=== PATIENT | male | born 1985 ===

== ENCOUNTER 2021-02-21 10:41 | Emergency (ER) | payer SELFPAY ==
[2021-02-21 10:45] VITALS: BP 146/78; PULSE 91
[2021-02-21] MEDS ORDERED: Sodium Chloride 0.9% 10 ML Syringe FLUSH PRN ×2 (10:45→11:14)
[2021-02-21] MEDS ORDERED: Norflurane/HFc 245FA Medium Stream Spray 103.5 ML Can ONE (10:59)
[2021-02-21] MEDS ORDERED: cefTRIAXone 1 GM in Sodium Chloride 0.9% 100 ML IV ONE (11:13)
[2021-02-21 11:17] LABS: ANION GAP 7.1 meq/L (7-15); CHLORIDE,CL 104 mmol/L (98-107); SODIUM,NA 140 mmol/L (136-145)
[2021-02-21] MEDS ORDERED: Cephalexin 250 MG Cap PO ONE (11:45)
--- NOTE | 2021-02-21 12:37 | EDM.PDOC ---
ED HPI GENERAL MEDICAL PROBLEM - General Chief Complaint: Lower Extremity Injury/Pain Stated Complaint: Right Calf redness and swelling Time Seen by Provider: 02/21/21 10:43 Source of Information: Reports: Patient History Limitations: Reports: No Limitations - History of Present Illness INITIAL COMMENTS - FREE TEXT/NARRATIVE: Increased pain/swelling back of right calf after getting skin punctured by a thorn several days ago. No fevers/chills. No other injuries. No drainage from scab. Right Calf Pain Score (Numeric/FACES): 9 - Related Data Allergies Allergy/AdvReac Type Severity Reaction Status Date / Time No Known Allergies Allergy Verified 02/21/21 11:57 Home Meds: Home Meds cephALEXin [Keflex] 500 mg PO Q6H #28 cap 02/21/21 [Rx] traMADol HCl [Tramadol HCl] 50 mg PO Q6H PRN #15 tablet 02/21/21 [Rx] Past Medical History - Past Health History Medical/Surgical History: Denies Medical/Surgical History Social & Family History - Caffeine Use Caffeine Use: Reports: Coffee - Recreational Drug Use Recreational Drug Use: No Review of Systems - Review of Systems Review Of Systems: See Below Constitutional: Reports: No Symptoms Eyes: Reports: No Symptoms Ears: Reports: No Symptoms Nose: Reports: No Symptoms Mouth/Throat: Reports: No Symptoms Respiratory: Reports: No Symptoms Cardiovascular: Reports: No Symptoms GI/Abdominal: Reports: No Symptoms Genitourinary: Reports: No Symptoms Musculoskeletal: Reports: Other (pain/swelling around wound right posterior lower leg) Skin: Reports: Erythema, Wound Neurological: Reports: No Symptoms Psychiatric: Reports: No Symptoms ED EXAM, GENERAL - Physical Exam Exam: See Below Exam Limited By: No Limitations General Appearance: Alert, WD/WN, No Apparent Distress Eye Exam: Bilateral Eye: EOMI, PERRL Ears: Hearing Grossly Normal Throat/Mouth: Normal Lips, Normal Voice, No Airway Compromise Head: Atraumatic, Normocephalic Neck: Supple Respiratory/Chest: No Respiratory Distress Extremities: Other (small scab with surrounding 10cm erythema noted back of right lower leg. Tender/joint maker machine area. No drainage. Minimal puffiness noted distally in area of ankle/foot. ) Neurological: Alert, Oriented, Normal Cognition, No Motor/Sensory Deficits Psychiatric: Normal Affect, Normal Mood Skin Exam: Erythema, Wound/Incision Course - Vital Signs Last Recorded V/S: Last Vital Signs Temp 36.3 C 02/21/21 10:44 Pulse 91 02/21/21 10:44 Resp 18 02/21/21 10:44 BP 146/78 H 02/21/21 10:44 Pulse Ox 100 02/21/21 10:44 - Orders/Labs/Meds Orders: Active Orders 24 hr Category Date Time Status MISCELLANEOUS CULT [MREF] Stat Lab 02/21/21 10:55 Received Sodium Chloride 0.9% [Saline Flush] Med 02/21/21 10:45 Active 10 ml FLUSH ASDIRECTED PRN Sodium Chloride 0.9% [Saline Flush] Med 02/21/21 11:14 Active 10 ml FLUSH ASDIRECTED PRN Saline Lock Insert [OM.PC] Routine Oth 02/21/21 10:45 Ordered Saline Lock Insert [OM.PC] Routine Oth 02/21/21 11:14 Ordered Medication Orders Sodium Chloride (Sodium Chloride 0.9% 10 Ml Syringe) 10 ml FLUSH ASDIRECTED PRN PRN Reason: Keep Vein Open Sodium Chloride (Sodium Chloride 0.9% 10 Ml Syringe) 10 ml FLUSH ASDIRECTED PRN PRN Reason: Keep Vein Open Labs: Laboratory Tests 02/21/21 02/21/21 Range/Units 10:50 10:50 WBC 10.6 H (4.0-10.2) K/uL RBC 5.19 (4.33-5.41) M/uL Hgb 15.5 (13.1-16.8) g/dL Hct 46.0 (39.0-49.0) % MCV 88.6 (84.0-98.0) fL MCH 29.9 (28.2-33.3) pg MCHC 33.7 (31.7-36.0) g/dL RDW 13.5 (11.2-14.1) % Plt Count 307 (150-350) K/uL Neut % (Auto) 65.2 (45.0-80.0) % Lymph % (Auto) 22.7 (10.0-50.0) % [place] % (Auto) 10.5 (2.0-14.0) % Eos % (Auto) 1.2 (0.0-5.0) % Baso % (Auto) 0.4 (0.0-2.0) % Neut # (Auto) 6.91 (1.40-7.00) K/uL Lymph # (Auto) 2.41 (0.50-3.50) K/uL [place] # (Auto) 1.11 H (0.00-1.00) K/uL Eos # (Auto) 0.13 (0.00-0.50) K/uL Baso # (Auto) 0.04 (0.00-0.20) K/uL Sodium 140 (136-145) mmol/L Potassium 4.2 (3.5-5.1) mmol/L Chloride 104 (98-107) mmol/L Carbon Dioxide 28.9 (21.0-32.0) mmol/L Anion Gap 7.1 (7-15) meq/L BUN 12 (7-18) mg/dL Creatinine 1.11 (0.51-1.17) mg/dL Est Cr Clr Drug Dosing TNP Estimated GFR (MDRD) > 60 mL/min Glucose 81 (70-99) mg/dL Calcium 9.0 (8.5-10.1) mg/dL Total Bilirubin 0.5 (0.2-1.0) mg/dL AST 24 (15-37) U/L ALT 64 (12-78) U/L Alkaline Phosphatase 108 (46-116) IU/L Total Protein 8.2 (6.4-8.2) g/dL Albumin 4.1 (3.4-5.0) g/dL Meds: Medications Generic Name Dose Route Start Last Admin Trade Name Freq PRN Reason Stop Dose Admin Sodium Chloride 10 ml 02/21/21 10:45 Sodium Chloride 0.9% 10 Ml Syringe FLUSH ASDIRECTED PRN Keep Vein Open Sodium Chloride 10 ml 02/21/21 11:14 Sodium Chloride 0.9% 10 Ml Syringe FLUSH ASDIRECTED PRN Keep Vein Open Discontinued Medications Generic Name Dose Route Start Last Admin Trade Name Freq PRN Reason Stop Dose Admin Cephalexin 500 mg 02/21/21 11:45 Cephalexin 250 Mg Cap PO 02/21/21 11:46 ONETIME ONE Ceftriaxone Sodium 1 gm/ 100 mls @ 200 mls/hr 02/21/21 11:13 02/21/21 11:35 Sodium Chloride IV 02/21/21 11:42 200 mls/hr ONETIME ONE Administration Norflurane Confirm 02/21/21 10:59 02/21/21 11:15 Norflurane/Hfc 245fa Medium [place] 103.5 Ml Can Administered 02/21/21 11:00 1 spray Dose Administration 103.5 ml .ROUTE .[facility] ONE - Re-Assessments/Exams Free Text/Narrative Re-Assessment/Exam: 02/21/21 12:43 Able to obtain small amount of purulent material from scab after needle aspiration failed to obtain any material for culture. No obvious purulent pocket/abscess identified. IV Rocephin given to patient. PO Keflex. Recommend recheck in 48 hours but patient says he will return home to [place] and will not be in area for a recheck after we offered to make appointment for him locally. Patient encouraged to make follow up appointment friday in his home town. To follow up as needed if any signs of worsening noted. Patient wondered if he might "have a clot" in the affected leg due to the puffiness of that lower ankle/foot. He declined having an US study for ruling that out. Suspect that the puffiness is due to ongoing acute infection. Will be continued on PO Keflex 500mg QID. Tramadol 50mg Q6 prn pain also given. (#15). Departure - Departure Time of Disposition: 12:33 Disposition: Home, Self-Care 01 Condition: Good Clinical Impression: Cellulitis of calf - Discharge Information *PRESCRIPTION DRUG MONITORING PROGRAM REVIEWED*: Not Applicable *COPY OF PRESCRIPTION DRUG MONITORING REPORT IN PATIENT DUSTIN: Not Applicable Prescriptions: cephALEXin [Keflex] 500 mg PO Q6H #28 cap traMADol HCl [Tramadol HCl] 50 mg PO Q6H PRN #15 tablet PRN Reason: Pain Instructions: Cellulitis, Adult, Ceftriaxone Injection Referrals: PCP,Not In Area [Primary Care Provider] - Forms: ED Department Discharge Additional Instructions: Follow up for recheck if no improvement within 24-48 hours or if suddenly worse. Sepsis Event Note (ED) - Focused Exam Vital Signs: Vital Signs Temp Pulse Resp BP Pulse Ox 02/21/21 10:44 36.3 C 91 18 146/78 H 100 - My Orders Last 24 Hours: My Active Orders 02/21/21 10:45 Sodium Chloride 0.9% [Saline Flush] 10 ml FLUSH ASDIRECTED PRN Saline Lock Insert [OM.PC] Routine 02/21/21 10:55 MISCELLANEOUS CULT [MREF] Stat 02/21/21 11:14 Sodium Chloride 0.9% [Saline Flush] 10 ml FLUSH ASDIRECTED PRN Saline Lock Insert [OM.PC] Routine - Assessment/Plan Last 24 Hours: My Active Orders 02/21/21 10:45 Sodium Chloride 0.9% [Saline Flush] 10 ml FLUSH ASDIRECTED PRN Saline Lock Insert [OM.PC] Routine 02/21/21 10:55 MISCELLANEOUS CULT [MREF] Stat 02/21/21 11:14 Sodium Chloride 0.9% [Saline Flush] 10 ml FLUSH ASDIRECTED PRN Saline Lock Insert [OM.PC] Routine
== END 2021-02-21 13:00 | disposition home or self-care (01) ==
LOC: LL.ED 10:41
DX: L03.115 Cellulitis of right lower limb (principal)
CPT/HCPCS: 80053; 85025; 87070; 87205; 96365; 99283; 99283-25; A9270-GY; J0696